=== PATIENT | female | born 1975 | race Two or more races ===

== ENCOUNTER → 2017-07-31 | Outpatient (CLI) | payer OTHER ==
--- NOTE | 2017-07-31 11:19 | RADIOLOGY IMAGING REPORT ---
[place] [facility] [place] NAME: Elise Cedeño : 1975 MR: [id number] V: [id number] EXAM DATE: ORDERING PHYSICIAN: ELOISA JOHNSON TECHNOLOGIST: Location: [facility] Patient: Elise Cedeño : 1975 Visit/Account:[id number] Date of Sevice: 07/31/2017 PELVIC Comparisons: None. Additional pertinent history: Right lower quadrant pain. FINDINGS: Uterus: 7.2 x 3.7 x 5.7 cm. Negative. Endometrium. Negative. Measuring 1 mm. Right ovary: Negative. The right ovary measures 2.5 x 1.3 x 2.7 cm. Left ovary: Negative. The left ovary measures 2.9 x 1.2 x 2.8 cm . Free fluid: None. Pelvic vasculature: Negative. Bladder: Negative IMPRESSION: Normal transabdominal and transvaginal pelvic sonogram. Report Dictated By: Michael Sharma MD at 07/31/2017 11:13 AM Report E-Signed By: Michael Sharma MD at 07/31/2017 11:15 AM WSN:[id number]
== END ==
LOC: US 09:00
PROVIDERS: ATTEND Obstetrics & Gynecology
DX: R10.31 Right lower quadrant pain (principal)
CPT/HCPCS: 76856